=== PATIENT | male | born 1960 ===

== ENCOUNTER 2020-03-16 21:55 | Outpatient (REF) | payer SELFPAY ==
[2020-03-16 21:50] LABS: HCT 38.4 % (40.0-50.0); HGB 12.8 g/dL (13.5-17.5); Mean Corp. HGB Concentration 33.3 g/dL (32.0-36.0); Mean Corpuscular Hemoglobin 29.8 pg (27.0-33.0); Mean Corpuscular Volume 89.5 fL (80-95); Mean Platelet Volume 11.7 fL (8.0-11.0); Platelet Count 226 x1000/uL (130-400); RBC 4.29 m/cumm (4.50-6.00); White Blood Cell Count 5.57 k/cumm (4.4-10.8)
[2020-03-16 22:17] LABS: ALT 24 U/L (16-63); AST 14 U/L (15-37); Albumin 3.7 g/dL (3.4-5.0); Alkaline Phosphatase 89 U/L (46-116); Anion Gap 9.3 mmol/L (3-11); BUN 25 mg/dL (7-18); Bilirubin, Total 0.3 mg/dL (0.2-1.0); CO2 28.7 mmol/L (21.0-32.0); CREATININE 1.99 mg/dL (0.70-1.30); Calcium 9.3 mg/dL (8.5-10.1); Calculated LDL 110 mg/dL (<100); Chloride 103 mmol/L (98-107); Cholesterol 171 mg/dL (<200); Estimated GFR 34.57 (mL/min/1.73m2); Glucose 92 mg/dL (74-106); HDL Cholesterol 47 mg/dL (40-60); Potassium 4.2 mmol/L (3.5-5.1); Sodium 141 mmol/L (136-145); TSH (W/Ref FT4) 0.62 uIU/mL (0.36-3.74); Total Protein 7.2 g/dL (6.4-8.2); Triglyceride 70 mg/dL (<150)
[2020-03-19 11:53] LABS: Hepatitis C Ab w Rflx HCV PCR Reactive (Negative)
[2020-03-21 14:22] LABS: HCV RNA Qualitative Detected (Undetected)
== END 2020-03-16 22:15 ==
LOC: NCHCN 21:55
PROVIDERS: Visit Provider Nurse Practitioner Family
DX: R63.4 Abnormal weight loss (principal); Z13.220 Encounter for screening for lipoid disorders; Z00.00 Encounter for general adult medical examination without abnormal findings
CPT/HCPCS: 80053; 80061; 85027; 86803; 87522; 84443